=== PATIENT | female | born 1990 | race Caucasian/White ===

== ENCOUNTER → 2021-03-17 07:57 | Outpatient (CLI) | payer OTHER, SELFPAY ==
--- NOTE | 2021-03-17 | DI.MRI.S_ITS ---
BREAST MRI OF BOTH BREASTS: 03/17/2021 CLINICAL: Left breast mass; no focal abnormalities noted on prior mammograms or ultrasound evaluations. Family history for breast cancer in her mother diagnosed at age 58. TECHNIQUE: The patient was placed prone in a dedicated breast imaging coil. Precontrast axial STIR and 3D FLASH without fat saturation sequences were obtained. Both before and after bolus injection of contrast, sequential 1-minute axial 3D FLASH with fat saturation sequences for 3 time points, with subtraction images and maximum intensity projections (MIP's) generated. Delayed sagittal FLASH images with fat saturation were also obtained. Computer-aided detection, including computer algorithm analysis of MRI image data for lesion detection and characterization, pharmacokinetic analysis, with further physician review for interpretation, was performed. COMPARISON: [facility], , US LEFT BREAST, 02/03/2021, 9:23. [facility], , MM TOMOSYNTHESIS DIAGNOSTIC BI, 02/03/2021, 8:43. [facility], MARK, US LEFT BREAST, 11/26/2019, 12:27. [facility], , US LEFT BREAST, 01/30/2019, 11:23. FINDINGS: Image quality: Excellent. There is mild background parenchymal enhancement. There is heterogeneously dense fibroglandular tissue in the bilateral breast. Right breast: No mass, non-mass enhancement, or architectural distortion identified. No skin or nipple abnormalities. Left breast: No mass, non-mass enhancement or architectural distortion. No skin or nipple abnormalities seen. There is an intramammary lymph node identified in the upper, outer quadrant of the deep posterior left breast demonstrating preservation of normal reniform morphology, central fatty hilum, and thin, uniform cortical thickness. There is no MRI abnormalities identified in the upper outer quadrant of the left breast to correlate with region of previously described palpable area of concern. Miscellaneous: No axillary or internal mammary chain adenopathy. Visualized portions of the upper abdomen and anterior chest appear unremarkable. Normal bone marrow signal intensity. IMPRESSION: BENIGN 1. Right breast without MRI evidence for malignancy. 2. Left breast without MRI evidence for malignancy. Additionally, there are no abnormalities identified in the upper outer quadrant of the left breast to correlate with area of previously described palpable area of patient concern. Recommend continued clinical surveillance. Recommend screening mammogram at age 40 (patient's mother was reported to have been diagnosed at age 58 for breast cancer). Additionally, given elevated lifetime risk breast cancer of approximately 27%, annual screening breast MRI as an adjunct to screening mammography can be considered. COMMENT: The imaging literature indicates that a negative contrast breast MRI examination has a high sensitivity and a moderate specificity for detecting and excluding invasive carcinomas to a detection threshold of 3-5 mm; nonetheless, appropriate clinical and mammographic follow-up are recommended. MRI is not sensitive for detecting DCIS (ductal carcinoma in situ) and may not detect large invasive neoplasms that show only minimal enhancement such as mucinous carcinoma. If there are suspicious calcifications or clinically worrisome palpable masses, then biopsy should still be considered. Invasive neoplasms can be hidden by co-existent and benign enhancement caused by mastitis, hormone therapy effects, radiation therapy, , and recent biopsy or surgery. False positive examinations can occur in a number of circumstances, including breasts that have recently been subject to invasive procedures and those that contain atypical ductal hyperplasia, hormonally stimulated glandular tissue, fat necrosis, or radial scars. This exam was interpreted at Station ID: [id number]. Electronically Signed By: Chirag Montgomery M.D. aty/:03/17/2021 16:45:39 ACR BI-RADS Category 2: Benign Finding(s) 3342F
== END ==
PROVIDERS: Referring Provider Surgery; Visit Provider Surgery
DX: N63.20 Unspecified lump in the left breast, unspecified quadrant (principal); Z80.3 Family history of malignant neoplasm of breast
CPT/HCPCS: 77049

== ENCOUNTER → 2021-04-05 13:15 | Outpatient (CLI) | payer OTHER, SELFPAY ==
--- NOTE | 2021-04-05 13:18 | DI.RAD.S_ITS ---
PROCEDURE: XR CHEST 2V INDICATIONS: SOB TECHNIQUE: 2 views of the chest were acquired. COMPARISON: None. FINDINGS: Surgical changes and devices: None. Lungs and pleura: Lungs are clear. No pleural effusions or pneumothorax. Mediastinum: Mediastinal contours are normal. Heart size is normal. Bones and chest wall: No suspicious bony abnormalities. Soft tissues appear unremarkable. IMPRESSION: Relatively reduced inspiratory volume which accentuates the bronchovascular markings and when this is taken into account no alveolar edema or CHF or pneumonia would be suspected. Dictated by: Marco Antonio Rivera M.D. on 04/05/2021 at 16:47 Approved by: Marco Antonio Rivera M.D. on 04/05/2021 at 16:47
== END ==
PROVIDERS: PCP Physician Assistant; Referring Provider Physician Assistant; Visit Provider Physician Assistant
DX: R06.02 Shortness of breath (principal)
CPT/HCPCS: 71046

== ENCOUNTER → 2023-08-28 08:46 | Outpatient (CLI) | payer OTHER, SELFPAY ==
--- NOTE | 2023-08-28 09:35 | DI.MRI.S_ITS ---
BREAST MRI OF BOTH BREASTS: 08/28/2023 CLINICAL: High Risk Breast Cancer. INDICATIONS: high risk for breast cancer TECHNIQUE: The patient was placed prone in a dedicated breast imaging coil. Precontrast axial STIR and 3D FLASH without fat saturation sequences were obtained. Both before and after bolus injection of contrast, sequential 1-minute axial 3D FLASH with fat saturation sequences for 3 time points, with subtraction images and maximum intensity projections (MIP's) generated. Delayed sagittal FLASH images with fat saturation were also obtained. COMPARISON: [facility], MR, MR BREAST BI WO/W CON, 03/17/2021, 8:23. FINDINGS: There is mild and symmetric background parenchymal enhancement. There is heterogeneous amount of fibroglandular tissue. Right breast: There is no suspicious enhancement or lymphadenopathy. Left breast: There is no suspicious enhancement or lymphadenopathy. IMPRESSION: NEGATIVE No MRI evidence of malignancy. Recommend screening mammogram at age 40 (patient's mother is reported to have been diagnosed at age 58 for breast cancer). This exam was interpreted at Station ID: [id number]. Electronically Signed By: Makenzie Telles M.D. esb/:08/28/2023 16:36:20 ACR BI-RADS Category 1: Negative [id number]
== END ==
PROVIDERS: PCP Physician Assistant; Referring Provider Physician Assistant; Visit Provider Physician Assistant
DX: Z12.39 Encounter for other screening for malignant neoplasm of breast (principal); Z80.3 Family history of malignant neoplasm of breast
CPT/HCPCS: 77049; A9579